=== PATIENT | male | born 1995 | race Two or more races ===

== ENCOUNTER 2017-07-03 00:31 | Observation (INO) | payer BC ==
--- NOTE | 2017-07-03 01:41 | ED PDOC ---
HPI: Psych/Substance Abuse Time Seen by Provider: 07/03/17 01:10 Chief Complaint (Nursing): Alcohol Ingestion Chief Complaint (Provider): ETOH ingestion ED Caveat: Intoxicated History Per: Other (rommates/friends) Onset/Duration Of Symptoms: Hrs (2-3) Current Symptoms Are (Timing): Still Present Suicide/Self Injury Attempted (Context): None Modifying Factor(s): Alcohol Severity: Mild Associated Symptoms: denies: Anger, Anxiety, Agitation, Paranoia, Suicidal Thoughts, Suicidal Plan Involuntary Hold By: None Additional History Per: Friend Additional Complaint(s): CC: ETOH 22 y/o healthy M, brought by friends due to increased ETOH (whisky and soda) use. Patient was with friends the whole night, no LOC, head trauma, seizures reported. Vomited x 2 only. No illicit drug use. Past Medical History Vital Signs: Last Vital Signs Temp 97.7 F 07/03/17 00:34 Pulse 88 07/03/17 00:34 Resp 17 07/03/17 00:34 BP 79/53 L 07/03/17 00:34 Pulse Ox 96 07/03/17 00:34 - Family History Family History: States: Unknown Family Hx - Allergies Allergies/Adverse Reactions: Allergies Allergy/AdvReac Type Severity Reaction Status Date / Time No Known Allergies Allergy Verified 07/03/17 00:36 Review of Systems Review Of Systems: ROS cannot be obtained secondary to pt's inabilty to answer questions. Physical Exam - Physical Exam Head Exam: Positive for: ATRAUMATIC, NORMOCEPHALIC Skin: Positive for: Normal Color, Warm, Dry Eye Exam: Positive for: EOMI Neck: Positive for: Normal, Painless ROM, Trachea Midline Cardiovascular/Chest: Positive for: Regular Rate, Rhythm Respiratory: Positive for: Normal Breath Sounds. Negative for: Accessory Muscle Use, Rales, Rhonchi, Stridor, Wheezing, Respiratory Distress Gastrointestinal/Abdominal: Positive for: Soft. Negative for: Tenderness, Distended, Guarding Neurologic/Psych: Positive for: Other (intoxicated, asleep but easily arousable ) - Laboratory Results Result Diagrams: 07/03/17 04:38 07/03/17 02:32 - ECG O2 Sat by Pulse Oximetry: 96 - Progress ED Course And Treament: ETOH use Cont. child monitor Urine tox, serum etoh level D5W 1L bolus ativan 1mg IV once due to agitation Disposition - Clinical Impression Clinical Impression: Alcohol intoxication - Patient ED Disposition Is Patient to be Admitted: Transfer of Care - Disposition Disposition: Transfer of Care Disposition Time: 06:35 Condition: STABLE
[2017-07-03] MEDS ORDERED: Sodium Chloride 0.9% 1,000 ML IV SCH (02:15)
[2017-07-03] MEDS ORDERED: Dextrose 5%/0.45% NS 1,000 ML IV SCH (02:15)
[2017-07-03 03:09] LABS: BLOOD UREA NITROGEN 7 mg/dl (9-20); GLUCOSE,RANDOM 110 mg/dL (75-110)
[2017-07-03 03:10] LABS: CALCIUM 8.4 mg/dL (8.4-10.2); CARBON DIOXIDE 22 mmol/L (22-30); CHLORIDE 104 mmol/L (98-107); GFR AFRICAN-AMERICAN > 60; POTASSIUM 3.8 MMOL/L (3.6-5.0); SODIUM 138 mmol/l (132-148)
[2017-07-03 03:11] LABS: ALB/GLOB RATIO 1.6 (1.0-2.1); ALCOHOL SERUM 198 mg/dl (0-10); ALKALINE PHOSPHATASE 65 U/L (38-126); ALT/SGPT 43 U/L (21-72); AST/SGOT 42 U/L (17-59)
[2017-07-03 04:35] VITALS: PULSE 73; RESP 16; TEMP 97.9
[2017-07-03 05:30] LABS: EOS % 0.1 % (0.0-4.0); LYMPH # 0.8 K/uL (1.0-4.3); MONO # 0.2 K/uL (0.0-0.8); MONO % 4.6 % (0.0-10.0); NRBC % 0.1 % (0.0-0.0)
[2017-07-03 05:33] LABS: BASO % 0.5 % (0.0-2.0); HEMATOCRIT 43.4 % (35.0-51.0); LYMPH % 15.6 % (20.0-40.0); MEAN CELL VOLUME 90.8 fl (80.0-94.0); MEAN CORPUSCULAR HEMOGLOBIN 29.3 pg (27.0-31.0); MEAN CORPUSCULAR HGB CONC 32.3 g/dL (33.0-37.0); MEAN PLATELET VOLUME 8.1 fl (7.2-11.7); NEUT # 4.2 K/uL (1.8-7.0); NEUT % 79.2 % (50.0-75.0); RED CELL DISTRIBUTION WIDTH 13.9 % (11.5-14.5); WHITE BLOOD COUNT 5.3 K/uL (4.8-10.8)
[2017-07-03 06:35] VITALS: O2SAT 96
[2017-07-03 06:39] VITALS: BP 155/65
== END 2017-07-03 06:41 | disposition home or self-care (01) ==
LOC: H.ER 00:31 → H.EROBSV 02:36
PROVIDERS: ADMIT Emergency Medicine; ATTEND Emergency Medicine
DX: F10.129 Alcohol abuse with intoxication, unspecified (principal); Y90.6 Blood alcohol level of 120-199 mg/100 ml
CPT/HCPCS: 80053; 85025; 96361; 96374; 96375; 99283; G0378; G0480; J2060; J2405; J7042